=== PATIENT | male | born 1985 | race Two or more races ===

== ENCOUNTER 2019-10-20 08:55 | Emergency (ER) | payer MEDICAID, OTHER ==
[~2019-10-20] VITALS: Ht 180.3 cm; Wt 83.9 kg
[2019-10-20 09:25] VITALS: BP 118/73
== END 2019-10-20 10:05 | disposition home or self-care (01) ==
LOC: ER 08:55
DX: S93.601A Unspecified sprain of right foot, initial encounter (principal); X50.1XXA Overexertion from prolonged static or awkward postures, initial encounter; Y93.B9 Activity, other involving muscle strengthening exercises; Y92.89 Other specified places as the place of occurrence of the external cause; Y99.8 Other external cause status
CPT/HCPCS: 73630